=== PATIENT | male | born 1955 | race African-American/Black ===

== ENCOUNTER 2016-12-20 19:45 | Emergency (ER) | payer OTHER ==
[~2016-12-20 19:45] MED LIST: VITC500 PO
[2016-12-20 20:30] LABS: BASOPHILS 0.5 %; BASOPHILS ABSOLUTE 0.03 10/3/uL (0.0-0.16); EOSINOPHILS 1.9 %; EOSINOPHILS ABSOLUTE 0.12 10/3/uL (0.0-0.53); ER CBC TAT 0 Hrs 10 Mins; HEMATOCRIT 43.1 % (40.0-51.0); HEMOGLOBIN 14.2 g/dL (13.6-17.8); IMMATURE GRANULOCYTES 0.2 %; IMMATURE GRANULOCYTES ABSOLUTE 0.01 10/3/uL (0.0-0.11); LYMPHOCYTES 61.9 %; LYMPHOCYTES ABSOLUTE 3.97 10/3/uL (0.67-4.30); MEAN CORPUS HGB CONC 32.9 g/dL (32.0-36.0); MEAN CORPUSCULAR HEMOGLOB 31.6 pg (26.0-34.0); MEAN CORPUSCULAR VOLUME 95.8 fL (80-100); MEAN PLATELET VOLUME 9.5 fL (9.2-13.0); MONOCYTES 10.1 %; MONOCYTES ABSOLUTE 0.65 10/3/uL (0.21-1.20); NEUTROPHILS 25.4 %; NEUTROPHILS ABSOLUTE 1.63 10/3/uL (2.02-8.40); PLATELET COUNT 285 10/3/uL (150-400); RBC DISTRIBUTION WIDTH 14.9 % (12.0-16.0); WHITE BLOOD CELLS 6.4 10/3/uL (4.5-10.5)
[2016-12-20 20:32] LABS: MANUAL DIFF NO %
[2016-12-20 20:45] LABS: INTERNATIONAL NORMAL RATI 1.1 UNITS (-); PARTIAL THROMBO TIME 29.9 SEC (22.5-37.2); PROTIME (NOT ORD) 13.6 SEC (12.0-14.5)
[2016-12-20 20:51] LABS: BUN (BLOOD UREA NITROGEN) 12 MG/DL (6-23); CALCIUM, SERUM 8.8 MG/DL (8.5-10.4); CHLORIDE, SERUM 111 MMOL/L (96-112); CO2 (CARBON DIOXIDE) 25 MMOL/L (24-34); CREATININE 1.12 MG/DL (0.70-1.30); GFR AFRICAN AMERICAN 82 ML/MIN (>=60); GFR NON AFRICAN AMERICAN 71 ML/MIN (>=60); GLUCOSE, SERUM 103 MG/DL (60-99); SODIUM, SERUM 142 MMOL/L (135-148); TROPONIN I <0.02 NG/ML (<0.05)
[2016-12-20 20:52] LABS: POTASSIUM, SERUM 4.2 MMOL/L (3.5-5.3)
[2016-12-20 20:53] LABS: CHEST PAIN PROFILE TAT 0 Hrs 31 Mins
== END 2016-12-20 23:00 | disposition home or self-care (01) ==
LOC: ER 19:45
PROVIDERS: Emergency Medicine
DX: R00.1 Bradycardia, unspecified (principal); Z79.899 Other long term (current) drug therapy
CPT/HCPCS: 70450; 71010; 80048; 83735; 84484; 85025; 85610; 85730; 93005; 93225; 99284